=== PATIENT | male | born 1985 | race Caucasian/White ===

== ENCOUNTER 2016-08-18 19:52 | Emergency (ER) | payer BC, OTHER ==
[2016-08-18 19:56] VITALS: BP 159/87; PULSE 82; TEMP 97.9; BMI 27.6
--- NOTE | 2016-08-18 19:56 | PDOC ---
Rapid Medical Evaluation Time Seen by Provider: 08/18/16 19:54 Medical Evaluation: 08/18/16 19:54 I have performed a brief in-person evaluation of this patient. The patient presents with a chief complaint of: rlq pain x 2-3 weeks but increased today. No sx. + chills today. no n/v/d/dysuria Pertinent physical exam findings:VSS I have ordered the following: ua, cbc, comp, The patient will proceed to the ED for further evaluation.
[2016-08-18 20:25] LABS: BASOPHIL 0.4 % (0-2.0); EOSINOPHIL 0.2 % (0-4.5); MCH 31.1 pg (25.7-33.7); MCHC 34.3 g/dl (32.0-35.9); MEAN CELL VOLUME 90.7 fl (80-96); MEAN PLT VOLUME 9.5 fl (7.5-11.1); NEUTROPHILS 63.8 % (42.8-82.8); PLATELET COUNT 177 K/MM3 (134-434); RDW 13.1 % (11.9-15.9); URINE APPEARANCE CLEAR; URINE BILIRUBIN NEGATIVE (NEGATIVE); URINE BLOOD NEGATIVE (NEGATIVE); URINE COLOR YELLOW; URINE GLUCOSE (UA) NEGATIVE (NEGATIVE); URINE KETONE NEGATIVE (NEGATIVE); URINE LEUK ESTERASE NEGATIVE (NEGATIVE); URINE NITRITE NEGATIVE (NEGATIVE); URINE PROTEIN NEGATIVE (NEGATIVE); URINE UROBILINOGEN NEGATIVE E.U./dl (0.2-1.0); WHITE BLOOD COUNT 8.2 K/mm3 (4.0-10.0)
[2016-08-18 21:18] LABS: ALBUMIN 4.1 g/dl (3.4-5.0); ALK PHOS 95 U/L (45-117); ANION GAP 7 (8-16); BILIRUBIN,TOTAL 0.5 mg/dL (0.2-1.0); CALCIUM 9.4 mg/dL (8.5-10.1); CO2 30 mmol/L (21-32); CREATININE 1.2 mg/dL (0.7-1.3); GLUCOSE,RANDOM 118 mg/dL (74-106); SGOT/AST 14 U/L (15-37); SGPT/ALT 24 U/L (12-78)
--- NOTE | 2016-08-18 22:41 | PDOC ---
History of Present Illness - General Chief Complaint: Pain Stated Complaint: PAIN Time Seen by Provider: 08/18/16 19:54 History Source: Patient Exam Limitations: No Limitations - History of Present Illness Travel History: No Initial Comments: 08/18/16 20:36 31yo Male patient with no PmHx presents to ED c/o RLQ abd pain. Patient reports symptoms began 2-3 weeks ago on and off. Symptoms got better but today worsened. Patient describes pain as sharp, intermittent, but strong. Denies n/v/ d, CP, Diff breathing, rectal bleeding, hematemesis, fever, back pain, rash, or any other complaints. - smoker - drug use + ETOH "socially" no pcp. Timing/Duration: reports: getting worse, changing over time Quality: reports: mild Abdominal Pain Onset Location: reports: RLQ Pain Radiation: reports: no radiation Activities at Onset: reports: none Treatment Prior to Arrive: improves with: analgesics Aggravating Factors: improves with: None Alleviating Factors: improves with: None Past History - Travel Traveled outside of the country in the last 30 days: No Close contact w/someone who was outside of country & ill: No - Past Medical History Allergies/Adverse Reactions: Allergies Allergy/AdvReac Type Severity Reaction Status Date / Time No Known Allergies Allergy Verified 08/18/16 19:54 Home Medications: Ambulatory Orders NK [No Known Home Medication] 08/18/16 - Psycho/Social/Smoking Cessation Hx Suicidal Ideation: No Smoking History: Never smoked Have you smoked in the past 12 months: No Number of Cigarettes Smoked Daily: 0 Information on smoking cessation initiated: No Hx Alcohol Use: No Drug/Substance Use Hx: No Abd/GI Specific PMHX - Complaint Specific PMHX Colitis: No Diverticulitis: No Gall Bladder Disease: No GERD: No Hepatitis: No Irritable Bowel Synd (IBS): No Pancreatitis: No GI Ulcer Disease: No Review of Systems - Review of Systems Able to Perform ROS?: Yes Is the patient limited Swedish proficient: No Constitutional: No: Chills, Fever Respiratory: No: Cough, Orthopnea, Shortness of Breath, Stridor, Wheezing Cardiac (ROS): No: Chest Pain, Lightheadedness, Palpitations, Syncope, Chest Tightness ABD/GI: Yes: Other (Abdominal Pain). No: Constipated, Diarrhea, Difficulty Swallowing, Nausea, Poor Appetite, Poor Fluid Intake, Rectal Bleeding, Vomiting , Tarry Stools : No: Burning, Dysuria, Discharge, Flank Pain, Hematuria, Pain, Urgency Musculoskeletal: No: Back Pain Integumentary: No: Rash Neurological: No: Headache, Seizure, Dizziness *Physical Exam - Vital Signs Last Vital Signs Temp Pulse Resp BP Pulse Ox 97.9 F 82 14 159/87 98 08/18/16 19:54 08/18/16 19:54 08/18/16 19:54 08/18/16 19:54 08/18/16 19:54 - Physical Exam General Appearance: Yes: Nourished, Appropriately Dressed. No: Apparent Distress, Mild Distress, Moderate Distress, Severe Distress Neck: positive: Trachea midline, Supple. negative: Stridor, Lymphadenopathy (R) , Lymphadenopathy (L) Respiratory/Chest: positive: Lungs Clear, Normal Breath Sounds. negative: Respiratory Distress, Accessory Muscle Use, Labored Respiration, Rapid RR Cardiovascular: positive: Regular Rhythm, Regular Rate. negative: Edema, JVD, Murmur Gastrointestinal/Abdominal: positive: Normal Bowel Sounds, Soft, Other (Neg Rosving, Obturator or Psoas sign on examination.). negative: Tender, Distended , Guarding, Rebound, Tenderness Musculoskeletal: positive: Normal Inspection. negative: CVA Tenderness Extremity: positive: Normal Capillary Refill, Normal Inspection, Normal Range of Motion. negative: Pedal Edema, Swelling Integumentary: positive: Normal Color, Dry, Warm. negative: Rash, Swelling Neurologic: positive: senior quality assurance specialist II-XII NML intact, Fully Oriented, Alert, Normal Mood/ Affect, Normal Response, Motor Strength 5/5 ED Treatment Course - LABORATORY CBC & Chemistry Diagram: 08/18/16 20:15 08/18/16 20:42 - ADDITIONAL ORDERS Additional order review: Laboratory Results 08/18/16 08/18/16 20:42 20:15 Sodium 141 Potassium 3.8 Chloride 104 Carbon Dioxide 30 Anion Gap 7 L BUN 21 H Creatinine 1.2 Creat Clearance w eGFR > 60 Random Glucose 118 H Calcium 9.4 Total Bilirubin 0.5 AST 14 L ALT 24 Alkaline Phosphatase 95 Total Protein 7.0 Albumin 4.1 Urine Color Yellow Urine Appearance Clear Urine pH 5.0 Ur Specific [place] 1.032 Urine Protein Negative Urine Glucose (UA) Negative Urine Ketones Negative Urine Blood Negative Urine Nitrite Negative Urine Bilirubin Negative Urine Urobilinogen Negative Ur Leukocyte Esterase Negative 08/18/16 20:15 RBC 5.12 MCV 90.7 MCHC 34.3 RDW 13.1 MPV 9.5 Neutrophils % 63.8 Lymphocytes % 27.4 Monocytes % 8.2 Eosinophils % 0.2 Basophils % 0.4 - RADIOLOGY Radiology Studies Ordered: Category Date Time Status PELVIS(OTHER) US [US] Stat Ultrasound 08/18/16 20:27 Completed *DC/Admit/Observation/Transfer Diagnosis at time of Disposition: Abdominal pain Qualifiers: Abdominal location: right lower quadrant Qualified Code(s): R10.31 - Right lower quadrant pain - Discharge Dispostion Disposition: HOME Condition at time of disposition: Stable Admit: No - Referrals Referrals: Yariel Real MD [Staff Physician] - Cindy Hammond MD [Staff Physician] - - Patient Instructions Printed Discharge Instructions: Appendicitis: What You Need to Know, DI for Appendicitis -- Adult, DI for Abdominal Pain-Adult Additional Instructions: FOLLOW UP WITH DR. REAL OR DR. HAMMOND (GASTROENTEROLOGY) FOR FURTHER EVALUATION. CALL TO SCHEDULE APPOINTMENT. RETURN IF YOU EXPERIENCE FEVER, SEVERE ABDOMINAL PAIN, NAUSEA AND VOMITING OR ANY OTHER COMPLAINTS FOR FURTHER EVALUATION. Print Language: [place] CITIZEN - Post Discharge Activity Work/School Note: Back to Work
== END 2016-08-18 23:01 | disposition home or self-care (01) ==
LOC: JER 19:52
DX: R10.31 Right lower quadrant pain (principal)
CPT/HCPCS: 36415; 76856-TC; 80053; 81003; 85025; 99282-25